=== PATIENT | male | born 1985 | race Hispanic/Latino ===

== ENCOUNTER 2017-04-05 00:30 | Emergency (ER) | payer OTHER ==
[~2017-04-05] VITALS: Ht 167.6 cm; Wt 65.8 kg
--- NOTE | 2017-04-05 00:49 | ER.PDOC ---
General Chief Complaint: Animal Bite Stated Complaint: DOG BITE LL LEG Time seen by MD: 00:45 Source: patient Exam Limitations: no limitations History of Present Illness Initial Comments Pt was bitten about 1 hour ago by neighbor's dog Onset: just prior to arrival Where: neighbor's Animal: dog Animal Appearance: appeared well Animal Immunizations: UTD Context of Attack: "unprovoked" attack Severity of Injury: bitten Injury Location: lower extremity (left) Allergies: Coded Allergies: ibuprofen (Verified Allergy, Unknown, 04/05/17) Social History Smoking: non-smoker Alcohol Use: none Drug Use: none Review of Systems Constitutional: see HPI Eyes: see HPI Ears: see HPI Nose: see HPI Mouth: see HPI Throat: see HPI Respiratory: see HPI Cardiovascular: see HPI Gastrointestinal: see HPI Genitourinary: see HPI Musculoskeletal: see HPI Skin: see HPI Psychiatric/Neurological: see HPI Physical Exam General Appearance: alert, no distress Skin: laceration (anterior left distal leg) Psych: mood/affect nml HEENT: atraumatic, PERRL, eye lids/conjun nml, ENT nml external inspect. Neck: uninjured, nml inspection Resp/CVS: chest non-tender, breath sounds nml, heart sounds nml, reg. rate & rhythm Abdomen: nml inspection, non-tender Back: nml inspection Extremities: nml inspection, no infection, ROM nml Progress Progress Pt declines stitches. Wound was cleaned with betadine and rinsed with saline solution Course Blood Pressure Systolic: 141 Blood Pressure Diastolic: 97 Blood Pressure Mean: 112 Departure Time of Disposition: 01:01 Disposition: 01 HOME, SELF-CARE Impression: Primary Impression: Laceration of left lower leg Additional Impression: Dog bite Condition: Stable Referrals: PCP,UNKNOWN (PCP) PRIMARY CARE PROVIDER Problem Qualifiers LORRIE BERNARD MD Apr 05, 2017 00:48
--- NOTE | 2017-04-05 00:49 | NUR ---
HOME MEDS PT DENIES ANY HOME MEDS ON A DAILY BASIS
[2017-04-05] MEDS ORDERED: LIDOCAINE 1% VIAL ONE (00:51)
--- NOTE | 2017-04-05 01:05 | NUR ---
WOUND CARE PT DECLINED SUTURES, WOUND CLEANED, IRRIGATED WITH NS, WOUND DRIED, STERI STRIPS APPLIED TO WOUND.
--- NOTE | 2017-04-05 01:11 | NUR ---
DISCHARGE DISCHARGE INSTRUCTIONS AND PRESCRIPTION MEDICATION DISCUSSED. PT VERBALIZED UNDERSTANDING. ENCOURAGED TO RETURN FOR ANY CONCERNS.
[2017-04-05 01:13] VITALS: BP 137/86
== END 2017-04-05 01:11 | disposition home or self-care (01) ==
LOC: ER 00:30
DX: S81.852A Open bite, left lower leg, initial encounter (principal); W54.0XXA Bitten by dog, initial encounter; Y93.89 Activity, other specified; Y92.89 Other specified places as the place of occurrence of the external cause; Y99.8 Other external cause status; Z88.8 Allergy status to other drugs, medicaments and biological substances
CPT/HCPCS: 99283; J2001